=== PATIENT | male | born 1960 | race Caucasian/White ===

== ENCOUNTER 2016-12-13 23:25 | Emergency (ER) | payer OTHER ==
[~2016-12-13] VITALS: Ht 177.8 cm; Wt 81.5 kg
[2016-12-13 23:41] VITALS: Ht 177.8 cm; Wt 81.5 kg
[2016-12-14] MEDS ORDERED: VANCOMYCIN 1.25 GM in SOD CHLORIDE 0.9% 250 ML IVPB ONE (01:00)
[2016-12-14] MEDS ORDERED: CEFTRIAXONE 2 GM/50 ML (PMX) 50 ML IVPB ONE (01:00)
--- NOTE | 2016-12-14 01:19 | ERD ---
ER Documentation Chief Complaint Date/Time DATE: 12/14/16 TIME: 01:16 Chief Complaint swelling/abscess left lower leg x 5 days HPI Patient is a 56-year-old homeless man who presents with swelling to his left leg with erythema for several days. The patient cannot state how long his legs been swollen, and is perseverating on sores that he has on his arms that he believes bugs are crawling out of. He denies fever, denies history of CHF, denies recent drug or alcohol abuse, denies psychiatric history. ROS All systems reviewed and are negative except as per history of present illness. Medications Home Meds Active Scripts Cephalexin* (Cephalexin*) 500 Mg Capsule, 500 MG PO Q6 for 10 Days, #40 CAP Prov:DIEGO CHAVES MD 12/14/16 Sulfamethoxazole-Trimethoprim* (Bactrim* DS) 800-160 Mg Tab, 1 TAB PO BID for 10 Days, TAB Prov:DIEGO CHAVES MD 12/14/16 Allergies Allergies: Coded Allergies: No Known Allergy (Unverified , 12/13/16) PMhx/Soc Past medical history: Denies Past surgical history: Denies Social history: Homeless History of Surgery: Yes (L leg fracture "with steel rods") Anesthesia Reaction: No Hx Neurological Disorder: No Hx Respiratory Disorders: No Hx Cardiac Disorders: Yes (mitral valve prolapse) Hx Psychiatric Problems: No (denies) Hx Miscellaneous Medical Probl: Yes (swollen BLE) Hx Alcohol Use: Yes (states he is an alcoholic; 1 pint vodka/ day) Hx Substance Use: Yes (used marijuana 1 day ago) Hx Tobacco Use: Yes (1 cigar/ day) Smoking Status: Current every day smoker FmHx Family History: No coronary disease, No diabetes Physical Exam Vitals Vital Signs Date Time Temp Pulse Resp B/P Pulse Ox O2 Delivery O2 Flow Rate FiO2 12/13/16 23:41 97.8 110 20 138/80 100 Physical Exam Const: Alert, no acute distress, unkempt Head: Atraumatic Eyes: Normal Conjunctiva, no pallor or icterus ENT: Normal External Ears, Nose and Mouth. Moist mucous membranes Neck: Full range of motion. No meningismus. No JVD Resp: Clear to auscultation bilaterally, no wheezes, rales Cardio: Tachycardia, regular rhythm, no murmurs Abd: Soft, non tender, non distended. Skin: Multiple small sores on bilateral arms without discharge or erythema. Small ulcer to left anterior neil, with surrounding edema and erythema extending to the foot and 3 cm inferior to the knee. 2+ pitting edema left leg , 1+ pitting edema right leg. Back: No midline or flank tenderness Ext: No cyanosis, or edema Neur: Awake and alert, cranial nerves II through XII intact bilaterally, was infused for extremity is appropriately Psych: Slightly bizarre and paranoid behavior, responds appropriately, calm Result Diagram: 12/14/16 0115 12/14/16 011 Results 24 hrs Laboratory Tests Test 12/14/16 01:15 12/14/16 01:17 White Blood Count 9.310^3/ul Red Blood Count 4.2710^6/ul Hemoglobin 12.3g/dl Hematocrit 38.9% Mean Corpuscular Volume 91.1fl Mean Corpuscular Hemoglobin 28.8pg Mean Corpuscular Hemoglobin Concent 31.6g/dl Red Cell Distribution Width 14.5% Platelet Count 66002^3/UL Mean Platelet Volume 10.8fl Neutrophils % 63.0% Lymphocytes % 24.0% Monocytes % 9.6% Eosinophils % 2.6% Basophils % 0.5% Nucleated Red Blood Cells % 0.0/100WBC Neutrophils # 5.810^3/ul Lymphocytes # 2.210^3/ul Monocytes # 0.910^3/ul Eosinophils # 0.210^3/ul Basophils # 0.110^3/ul Nucleated Red Blood Cells # 0.010^3/ul Sodium Level 140mmol/L Potassium Level 4.3mmol/L Chloride Level 104mmol/L Carbon Dioxide Level 25mmol/L Anion Gap 15 Blood Urea Nitrogen 16mg/dl Creatinine 0.94mg/dl Glucose Level 93mg/dl Calcium Level 9.3mg/dl Total Bilirubin 0.1mg/dl Direct Bilirubin 0.00mg/dl Indirect Bilirubin 0.1mg/dl Aspartate Amino Transf (AST/SGOT) 38IU/L Alanine Aminotransferase (ALT/SGPT) 36IU/L Alkaline Phosphatase 115IU/L B-Type Natriuretic Peptide 314PG/ML Total Protein 8.2g/dl Albumin 4.2g/dl Globulin 4.00g/dl Albumin/Globulin Ratio 1.05 Lactic Acid Level 1.7mmol/L Current Medications Medications (Trade) Dose Ordered Sig/Celia Route PRN Reason Start Time Stop Time Status Last Admin Dose Admin Ceftriaxone Sodium 50 ml @ 100 mls/hr ONCE ONCE IVPB 12/14/16 01:00 12/14/16 01:29 DC 12/14/16 01:23 Vancomycin HCl/ Sodium Chloride (Vancocin/NS) 250 ml @ 125 mls/hr ONCE ONCE IVPB 12/14/16 01:00 12/14/16 02:59 DC 12/14/16 01:38 Procedures/MDM Patient with redness and swelling to left leg for several days. Ultrasound is negative for DVT, exam is consistent with cellulitis. There is no evidence of sepsis and labs are unremarkable. The patient was given IV antibiotics in the ER, and will be discharged with prescriptions for Bactrim and Keflex for a 10 day course. I discussed return precautions including need to return for fever, worsening redness, drainage. The patient did have some delusional thinking, but exhibited capacity for self-care. There is no evidence of necrotizing soft tissue infection on exam. Departure Diagnosis: Primary Impression: Cellulitis of lower leg Condition: Stable DIEGO CHAVES MD Dec 14, 2016 01:19
[2016-12-14 01:41] LABS: ADD SCAN DIFF NO
[2016-12-14 01:50] LABS: BASOPHIL # 0.1 10^3/ul (0.0-0.1); BASOPHILS % 0.5 % (0.0-2.0); EOSINOPHILS # 0.2 10^3/ul (0.0-0.5); EOSINOPHILS % 2.6 % (0.0-7.0); HEMATOCRIT 38.9 % (42.0-52.0); HEMOGLOBIN 12.3 g/dl (14.0-18.0); LYMPHOCYTES # 2.2 10^3/ul (0.8-2.9); MEAN CORPUSCULAR HEMOGLOBIN 28.8 pg (29.0-33.0); MEAN CORPUSCULAR HGB CONC 31.6 g/dl (32.0-37.0); MEAN CORPUSCULAR VOLUME 91.1 fl (82.0-101.0); MEAN PLATELET VOLUME 10.8 fl (7.4-10.4); MONOCYTE # 0.9 10^3/ul (0.3-0.9); MONOCYTES % 9.6 % (0.0-11.0); NEUTROPHIL # 5.8 10^3/ul (1.6-7.5); PLATELET COUNT 268 10^3/UL (140-415); RED BLOOD COUNT 4.27 10^6/ul (4.70-6.10); RED CELL DISTRIBUTION WIDTH 14.5 % (11.5-14.5); WHITE BLOOD COUNT 9.3 10^3/ul (4.8-10.8)
--- NOTE | 2016-12-14 02:17 | RADRPT ---
PROCEDURE: US left lower extremity venous Doppler CLINICAL INDICATION: Swelling TECHNIQUE: Multiple sonographic images of the left lower extremity deep venous system was obtained utilizing grayscale, color-flow, compressive sonography and Doppler imaging with augmentation. COMPARISON: No pertinent prior examinations were submitted for comparison. FINDINGS: There is normal compressibility and flow within the left common femoral, superficial femoral, poplit eal, and calf veins. IMPRESSION: No sonographic evidence for left deep venous thrombosis. RPTAT: HIKT .Dusty Mi MD, MD Date Time Electronically viewed and signed by .Dusty Mi MD, on 12/14/2016 02:17 .T/
[2016-12-14 02:19] LABS: ALBUMIN 4.2 g/dl (3.3-4.9); ALBUMIN/GLOBULIN RATIO 1.05; BILIRUBIN,INDIRECT 0.1 mg/dl (0-1.1); BILIRUBIN,TOTAL 0.1 mg/dl (0.2-1.3); CALCIUM 9.3 mg/dl (8.4-10.2); CREATININE 0.94 mg/dl (0.61-1.24); POTASSIUM 4.3 mmol/L (3.5-5.1); TOTAL PROTEIN 8.2 g/dl (6.1-8.1)
[2016-12-14] MEDS ORDERED: CEPH500C PO (03:35)
[2016-12-14] MEDS ORDERED: BACTDS PO (03:35)
[2016-12-14 05:00] VITALS: BP 151/82; PULSE 85; RESP 18; TEMP 98
== END 2016-12-14 05:03 | disposition home or self-care (01) ==
LOC: E/R 23:25
DX: L03.116 Cellulitis of left lower limb (principal); R40.2252 Coma scale, best verbal response, oriented, at arrival to emergency department; F17.210 Nicotine dependence, cigarettes, uncomplicated; R40.2142 Coma scale, eyes open, spontaneous, at arrival to emergency department; R40.2362 Coma scale, best motor response, obeys commands, at arrival to emergency department
CPT/HCPCS: 36415; 80053; 83605; 83880; 85025; 93971; 96365; 96366; 96368; 99285; J3370; J7050